=== PATIENT | female | born 2000 | race Caucasian/White ===

== ENCOUNTER 2018-06-27 11:30 | Emergency (ER) | payer OTHER, SELFPAY ==
[2018-06-27] MEDS ORDERED: Bacitracin Zinc 1 Packet ONE (11:49)
== END 2018-06-27 11:55 | disposition home or self-care (01) ==
LOC: NAV ERS 11:30
DX: S61.001A Unspecified open wound of right thumb without damage to nail, initial encounter (principal); W25.XXXA Contact with sharp glass, initial encounter
CPT/HCPCS: 99283